=== PATIENT | female | born 1970 | race Hispanic/Latino ===

== ENCOUNTER 2018-07-04 09:00 | Emergency (ER) | payer SELFPAY ==
[~2018-07-04] VITALS: Ht 157.5 cm; Wt 614.2 kg
--- OUTSIDE RECORDS SUMMARY | 2018-07-04 09:04 | XMS REPORT ---
Author Author [facility] Address Unknown Phone Unavailable Care Team Providers Care [employer] Consultant Name Role Phone Unavailable Unavailable Payers Payer Name Policy Type Policy Number Effective Date Expiration Date Problems This patient has no known problems. Allergies, Adverse Reactions, Alerts Allergy Name Allergy Type Status Severity Reaction(s) Onset Date Inactive Date Treating Clinician Comments Penicillins DA Active U 2011-07-12 00:00:00 amoxicillin DA Active U 2011-07-12 00:00:00 Medications This patient has no known medications.
[2018-07-04 09:58] LABS: STREPTOCOCCUS GRP A ANTIGEN NEGATIVE (NEGATIVE)
[2018-07-04 10:23] LABS: INFLUENZAE A&B ANTIGEN (RAPID) NEGATIVE (NEGATIVE)
--- NOTE | 2018-07-04 10:37 | NUR ---
TONEY CHRISTIANSON IN TO GERTRUDE NICOLE.
[2018-07-04] MEDS ORDERED: DEXAMETHASONE SOD PHOS 10 MG/1 ML VIAL IM ONE (11:15)
[2018-07-04 12:17] VITALS: BP 151/92
--- NOTE | 2018-07-04 16:08 | Diagnostic Imaging Report ---
EXAM: CHEST SINGLE (PORTABLE) DATE: 07/04/2018 10:59 AM INDICATION: Cough , fever COMPARISON: None FINDINGS: Lines and tubes: None Heart size normal. No focal pulmonary opacity, pleural effusion or pneumothorax. Minimal atelectasis at the left lung base. Upper abdomen unremarkable with cholecystectomy clips. No acute bony abnormality. IMPRESSION: No evidence for acute disease. Signed by: Dr. Micheal Messina M.D. on 07/04/2018 4:05 PM
[2018-07-04] MEDS ORDERED: ONDANSETRON HCL 4 MG ORAL DISINTEGRATING TAB PO ONE (18:45)
[2018-07-04] MEDS ORDERED: HYDROMORPHONE 2MG/ML 2 MG/ML ML IM ONE (18:45)
== END 2018-07-04 12:30 | disposition home or self-care (01) ==
LOC: ER 09:00
DX: R50.9 Fever, unspecified (principal); R05 Cough; H92.03 Otalgia, bilateral; J01.30 Acute sphenoidal sinusitis, unspecified; J02.9 Acute pharyngitis, unspecified; J06.9 Acute upper respiratory infection, unspecified
CPT/HCPCS: 71045; 83518; 87070; 87400; 99283; J1100; J1170; Q0162

== ENCOUNTER 2018-09-03 16:23 | Emergency (ER) | payer SELFPAY ==
[~2018-09-03] VITALS: Ht 157.5 cm; Wt 614.2 kg
--- NOTE | 2018-09-03 17:30 | NUR ---
ASIF HARGROVE N.P. AT BEDSIDE EVALUATING PATIENT
[2018-09-03] MEDS ORDERED: BACTRIM DS TAB1 EACH PO (18:04)
== END 2018-09-03 18:43 | disposition home or self-care (01) ==
LOC: ER 16:23
DX: L02.413 Cutaneous abscess of right upper limb (principal); I10 Essential (primary) hypertension
CPT/HCPCS: 99282

== ENCOUNTER 2023-11-26 12:01 | Emergency (ER) | payer BC ==
[~2023-11-26] VITALS: Ht 157.5 cm; Wt 70.3 kg
[~2023-11-26 12:01] MED LIST: BACTRIM DS TAB1 EACH PO; PREDNISONE20 MG PO
[2023-11-26 12:39] VITALS: PULSE 72; RESP 18; TEMP 98; O2SAT 98
[2023-11-26] MEDS ORDERED: NAPROXEN250 MG PO (14:27)
== END 2023-11-26 14:49 | disposition home or self-care (01) ==
LOC: ER 12:08
DX: M25.571 Pain in right ankle and joints of right foot (principal); X50.1XXA Overexertion from prolonged static or awkward postures, initial encounter; Y93.01 Activity, walking, marching and hiking; Y92.89 Other specified places as the place of occurrence of the external cause; I10 Essential (primary) hypertension; E78.5 Hyperlipidemia, unspecified; E03.9 Hypothyroidism, unspecified; E84.9 Cystic fibrosis, unspecified
CPT/HCPCS: 99283